=== PATIENT | female | born 1990 | race Caucasian/White ===

== ENCOUNTER → 2016-08-24 | Outpatient (REF) | payer OTHER ==
[~2016-08-24] MED LIST: /VITACHEW PO; ACET50TA PO; CEPH500T PO; DOCU10ELUD PO; FLINCHW PO; IBUP80TA PO; MOM30SS PO
[2016-08-24 18:29] LABS: THYROXINE (T4) 10.3 UG/DL (4.5-12.0)
== END ==
LOC: M SFHCCLAY 09:45
PROVIDERS: ATTEND Family Medicine
DX: E03.9 Hypothyroidism, unspecified (principal)

== ENCOUNTER → 2016-10-13 | Outpatient (REF) | payer OTHER | LOC: M SFHCCLAY 13:20 | PROVIDERS: ATTEND Family Medicine | DX: D23.72 Other benign neoplasm of skin of left lower limb, including hip (principal) ==

== ENCOUNTER 2017-07-18 20:22 | Emergency (ER) | payer MEDICAID, OTHER, SELFPAY ==
[2017-07-18 21:24] LABS: APPEARANCE, URINE CLEAR (CLEAR); BACTERIA, URINE AUTO 1+ (NEGATIVE); BILIRUBIN, URINE AUTO NEGATIVE (NEGATIVE); BLOOD, URINE BLOOD NEGATIVE (NEGATIVE); COLOR, URINE STRAW (YELLOW); GLUCOSE, URINE (UA) AUTO NEGATIVE (NEGATIVE); KETONE, URINE AUTO NEGATIVE (NEGATIVE); LEUKOCYTE ESTERASE, URINE AUTO NEGATIVE (NEGATIVE); NITRITE, URINE AUTO NEGATIVE (NEGATIVE); PROTEIN, URINE AUTO NEGATIVE (NEGATIVE); RBC, URINE AUTO 1 /HPF (0-3); SPECIFIC GRAVITY URINE AUTO 1.006 (1.002-1.035); SQUAMOUS EPITHELIAL CELL UR AU 2 /HPF (0-6); UROBILINOGEN, URINE AUTO 0.2 mg/dL (0.0-2.0); WBC, URINE AUTO 0 /HPF (0-3)
[2017-07-18 22:23] LABS: HCG, SERUM QUANTITATIVE 758 MIU/ML
[2017-07-18] MEDS: NITROFURANTOIN (MACROBID) 100 MG CAP PO (23:14)
== END 2017-07-18 23:18 | disposition home or self-care (01) ==
LOC: M ED 20:22
DX: O20.0 Threatened abortion (principal); O23.30 Infections of other parts of urinary tract in pregnancy, unspecified trimester; O34.10 Maternal care for benign tumor of corpus uteri, unspecified trimester; O34.80 Maternal care for other abnormalities of pelvic organs, unspecified trimester; Z79.899 Other long term (current) drug therapy
CPT/HCPCS: 76801

== ENCOUNTER → 2017-07-20 | Outpatient (CLI) | payer MEDICAID, SELFPAY ==
[2017-07-20 20:18] LABS: HCG, SERUM QUANTITATIVE 1429 MIU/ML
== END ==
LOC: M LAB 19:07
DX: O20.0 Threatened abortion (principal)
CPT/HCPCS: 84702

== ENCOUNTER → 2017-12-23 | Outpatient (CLI) | payer OTHER ==
[2017-12-23 13:19] LABS: HEMATOCRIT 36.3 % (36.0-47.0); HEMOGLOBIN 11.8 g/dl (12.0-15.5); MEAN CORPUSCULAR HEMOGLOBIN 30.3 pg (27.0-33.0); MEAN CORPUSCULAR HGB CONC 32.5 g/dl (32.0-36.5); MEAN CORPUSCULAR VOLUME 93.3 fl (80.0-96.0); PLATELET COUNT, AUTOMATED 230 10^3/uL (150-450); RED BLOOD COUNT 3.89 10^6/uL (4.00-5.40); RED CELL DISTRIBUTION WIDTH 13.3 % (11.5-14.5); WHITE BLOOD COUNT 11.7 10^3/uL (4.0-10.0)
[2017-12-23 13:28] LABS: GLUCOSE CHALLENGE TEST 1 HOUR 82 MG/DL (LESS THAN 140)
== END ==
LOC: M LAB 11:57
DX: Z34.82 Encounter for supervision of other normal pregnancy, second trimester (principal); Z3A.00 Weeks of gestation of pregnancy not specified
CPT/HCPCS: 82950

== ENCOUNTER 2018-01-20 17:53 | Emergency (ER) | payer OTHER | END 2018-01-20 19:28 | disposition home or self-care (01) | LOC: M ED 17:53 | DX: M79.662 Pain in left lower leg (principal); M79.89 Other specified soft tissue disorders | CPT/HCPCS: 93971 ==

== ENCOUNTER → 2018-02-24 | Outpatient (REF) | payer OTHER ==
[~2018-02-24] MED LIST changes: +COLA100C5 PO; +IBUP-1114 PO; +MACR100C43 PO; +MAPA500T2 PO; +PREN1CHW4 PO
== END ==
LOC: M LAB REF 13:05
PROVIDERS: ATTEND Obstetrics & Gynecology
DX: Z34.83 Encounter for supervision of other normal pregnancy, third trimester (principal)

== ENCOUNTER 2018-02-26 23:11 | Inpatient (IN) | payer OTHER ==
[~2018-02-26] VITALS: Ht 157.5 cm; Wt 81.6 kg
[~2018-02-26 23:11] MED LIST changes: -COLA100C5 PO; -IBUP-1114 PO; -MAPA500T2 PO
[2018-02-26 23:25] VITALS: BP 130/68
[2018-02-27] VITALS (56 sets, daily range): BP systolic 89–146; BP diastolic 46–72
[2018-02-27] MEDS ORDERED: miSOPROStol 50 MCG 1/2 TAB (S0191) PO SCH (00:30)
[2018-02-27] MEDS ORDERED: OXYTOCIN DRIP 30 UNITS in APPROPRIATE DILUENT 1 EA IV SCH ×2 (02:00→14:23)
[2018-02-27 02:36] LABS: HEMATOCRIT 34.2 % (36.0-47.0); HEMOGLOBIN 11.1 g/dl (12.0-15.5); MEAN CORPUSCULAR HEMOGLOBIN 28.1 pg (27.0-33.0); MEAN CORPUSCULAR HGB CONC 32.5 g/dl (32.0-36.5); MEAN CORPUSCULAR VOLUME 86.6 fl (80.0-96.0); PLATELET COUNT, AUTOMATED 245 10^3/uL (150-450); RED BLOOD COUNT 3.95 10^6/uL (4.00-5.40)
[2018-02-27] MEDS ORDERED: CALCIUM CARBONATE 500 MG CHEW U/D PO ONE (03:45)
[2018-02-27] MEDS: LR 1,000 ML IV SCH ×2 (04:16→07:22)
--- NOTE | 2018-02-27 05:42 | NUR ---
L&D Note: -Patient requesting epidural. Pitocin was stopped earlier for variable decelerations. currently cat 1 tracing. vss, AF cx: 1/50%, unchanged. A/P: 27yo at 36 wks with PROM. Reassuring status -epidural at patient request -will resume labor augmentation Bev Adams MD
[2018-02-27] MEDS ORDERED: FENTANYL 2MCG/ML ROPIVACAINE 0.2% IN 0.9% NACL 100ML IVBAG As Ordered ONE (05:46)
[2018-02-27] MEDS ORDERED: diphenhydrAMINE INJ 50MG/ML VIAL (J1200) IV PRN (06:00)
[2018-02-27] MEDS ORDERED: EPIDURAL/PCA KEYS XX PRN (06:00)
[2018-02-27] MEDS ORDERED: FENTANYL/ROPIVACAINE/NACL BAG 100 ML EPIDURAL SCH (06:00)
[2018-02-27] MEDS ORDERED: REFRIGERATOR IV KEYS XX PRN (06:00)
[2018-02-27] MEDS ORDERED: NALOXONE INJ 0.4 MG/1 ML VIAL (J2310) IV PRN (06:00)
[2018-02-27] MEDS ORDERED: EPIDURAL COMMENT XX SCH (06:00)
[2018-02-27] MEDS ORDERED: ONDANSETRON 4MG/2ML VIAL (J2405) IV PRN (06:00)
[2018-02-27] MEDS: ePHEDrine SULFATE 25 MG/5 ML(5MG/ML) SYRINGE IV PRN ×4 (08:05→11:04)
--- NOTE | 2018-02-27 08:33 | HPE ---
DATE OF ADMISSION: 02/27/2018 REASON FOR ADMISSION: premature rupture of membranes. HISTORY OF PRESENT ILLNESS: Mrs. Lares is a 27-year-old 6, para 3 at 36 weeks 4 days estimated gestational age who presents with a gush of clear leakage of fluid overnight. She reports irregular contractions. Denies any vaginal bleeding. Also reports active movement. COURSE: Unremarkable. She initiated care in her first trimester at [facility]. PAST MEDICAL HISTORY: None. PAST SURGICAL HISTORY: 1. Tonsillectomy. 2. Dilatation and curettage. PAST OB HISTORY: She is 6, para 3. She has had three term uncomplicated deliveries. She has also had a 22 week still and two miscarriages. MEDICATIONS: vitamins. ALLERGIES: No known drug allergies. SOCIAL HISTORY: She denies any alcohol, tobacco or drug use during her . PHYSICAL EXAMINATION: Her vital signs are stable. She is afebrile. She has a category one heart tracing with some irregular contractions. General appearance: Well appearing, no acute distress. Lungs are clear to auscultation bilaterally. Cardiovascular: Heart regular rate and rhythm. Abdomen is gravid, nontender. Estimated weight 3100 grams. Cervical exam: She is 1 cm dilated, 25% effaced. Grossly ruptured. Nitrazine positive. Transabdominal ultrasound shows fetus in the cephalic presentation with oligohydramnios consistent with rupture of membranes. LABS: Her blood type is O positive. Antibody screen is negative. Rubella is immune. RPR is nonreactive. Hepatitis surface antigen is nonreactive. Chlamydia and gonorrhea screens are negative. She had a normal 1 hour Glucola and she is GBS negative. ASSESSMENT: 1. This patient is a 27-year-old 6, para 3 at 36 weeks 4 days estimated gestational age with premature rupture of membranes. 2. Reassuring status. PLAN: 1. Admit to labor and delivery. CBC, RPR, type and screen. 2. Patient has been thoroughly counseled in regards to her diagnosis. I have discussed augmentation of her labor with Pitocin. I have also reviewed other medications and procedures performed in labor and delivery. She has also been verbally consented for emergency surgery, blood products, anesthesia and desires to proceed with admission. 3. Will start Pitocin for augmentation.
[2018-02-27] MEDS: LACTATED RINGER'S 1000 ML IV PRN ×2 (09:19→11:04)
[2018-02-27] MEDS ORDERED: CALCIUM CARBONATE 500 MG CHEW U/D PO PRN (12:15)
[2018-02-27] MEDS ORDERED: RHOGAM 300 MCG (1500 IU) INJ (J2790) IM SCH (14:30)
[2018-02-27] MEDS ORDERED: MEASLES,MUMPS,RUBELLA VACCINE INJ (MMR-II) (90707) SC SCH (14:30)
[2018-02-27] MEDS ORDERED: miSOPROStol 200 MCG TAB (S0191) PR ONE (14:30)
[2018-02-27] MEDS ORDERED: ANUSOL HC CREAM 30GM TOP PRN (14:30)
[2018-02-27] MEDS ORDERED: DOCUSATE SODIUM 100 MG CAP PO PRN (14:30)
[2018-02-27] MEDS ORDERED: METHYLERGONOVINE MALEATE 0.2 MG TAB PO PRN (14:30)
[2018-02-27] MEDS ORDERED: MOM 30ML SUSPENSION UDC PO PRN (14:30)
[2018-02-27] MEDS ORDERED: DIBUCAINE 1% OINTMENT 30GM TOP PRN (14:30)
[2018-02-27] MEDS: IBUPROFEN 800 MG TAB PO PRN ×2 (15:14→23:29)
[2018-02-27] MEDS: ACETAMINOPHEN 500 MG TAB PO PRN (17:38)
[2018-02-28] MEDS: ACETAMINOPHEN 500 MG TAB PO PRN (05:32)
[2018-02-28 05:50] VITALS: BP 94/53
--- NOTE | 2018-02-28 06:38 | DN ---
DATE OF DELIVERY: 02/27/2018 TIME OF : 1320 hours. GENDER: Male. SCORES: 7 and 8. WEIGHT: 6 pounds, 11 ounces or 3440 grams. LACERATIONS: None. ESTIMATED BLOOD LOSS: 300 mL. ANESTHESIA: Epidural. COUNTS: 5 laparotomy sponges accounted prior to and after delivery. DELIVERY NOTE: On February 27, 2018 at 1320 hours, Mrs. Lares, a 27-year-old 6 now para 4 had a delivery of a liveborn male infant, scores 7 and 8, weight was 6 pounds 11 ounces or 3440 grams. Head was delivered OA over intact perineum followed by delivery of shoulders and corpus. The infant was handed to mom with a good cry. Cord was clamped times two and was cut by the father of the baby under my direction. The placenta was then drained and delivered grossly intact. A premixed bag of 500 mL of normal saline with 30 units of Pitocin was bolused along with uterine massage until the uterus was firm. On inspection the cervix, vagina and perineum was grossly intact and hemostatic. Mom and baby were recovering in stable condition.
[2018-02-28] MEDS ORDERED: IBUP-1114 PO (08:57)
[2018-02-28] MEDS ORDERED: COLA100C5 PO (08:57)
[2018-02-28] MEDS ORDERED: MOM30SS PO (08:57)
[2018-02-28] MEDS ORDERED: MAPA500T2 PO (08:57)
[2018-02-28] MEDS ORDERED: PRENATAL VITAMINS CHEWABLE TABLET PO SCH (09:00)
[2018-02-28] MEDS: IBUPROFEN 800 MG TAB PO PRN (09:54)
[2018-02-28 11:50] VITALS: BP 144/65
== END 2018-02-28 10:14 | disposition home or self-care (01) | DRG 560 ==
LOC: M LDO 23:11 → M LDI 02-27 00:21 → M OBS 02-27 15:00
PROVIDERS: ADMIT Obstetrics & Gynecology; ATTEND Obstetrics & Gynecology
PROC: 10E0XZZ Delivery of Products of Conception, External Approach (ICD-10-PCS; principal; 2018-02-27)
DX: O42.013 Preterm premature rupture of membranes, onset of labor within 24 hours of rupture, third trimester (principal); Z37.0 Single live birth; Z3A.36 36 weeks gestation of pregnancy

== ENCOUNTER → 2019-08-14 | Outpatient (CLI) | payer OTHER ==
[~2019-08-14] MED LIST changes: -/VITACHEW PO; -ACET50TA PO; +COLA100C5 PO; -DOCU10ELUD PO; +DOCU5LIQ PO; +FLIN1CHW3 PO; +IBUP-1114 PO; +MAPA500T17 PO; +MAPA500T2 PO
--- NOTE | 2019-08-14 12:19 | REP ---
Clinical: Acute right knee pain Technique: AP, lateral, bilateral oblique and sunrise views. Findings: The osseous structures and joint spaces are intact and normal. There is no evidence for acute fracture or dislocation. No joint effusion is appreciated. Surrounding soft tissues are unremarkable. No subcutaneous emphysema or radiodense foreign body. Impression: Normal examination. No acute fracture or dislocation. Electronically Signed by Christian Bryant MD 08/14/2019 12:11 P
== END ==
LOC: M CLY 11:51
PROVIDERS: ATTEND Family Medicine
DX: M25.461 Effusion, right knee (principal); M25.561 Pain in right knee

== ENCOUNTER → 2019-09-06 | Outpatient (CLI) | payer OTHER ==
--- NOTE | 2019-09-07 08:52 | REP ---
MRI RIGHT KNEE WITHOUT CONTRAST: HISTORY: Right knee effusion. Right knee pain laterally. Comparison knee radiographs are from August 14, 2019. TECHNIQUE: Axial, coronal and sagittal imaging planes are utilized. T1- and T2-weighted scans were obtained in the usual fashion with and without fat saturation. MRI FINDINGS: Cortical and medullary bone signal intensity are normal. There is no evidence of occult fracture. There is a small amount of joint fluid. No discernible Thomason's cyst. There is fluid however surrounding the myofascial interface of the distal semimembranosus muscle belly. In addition there is some fluid at the myofascial interface of the gastrocnemius muscle in the proximal calf. This may relate to soft tissue injury. No tendon disruption is appreciated. The anterior and posterior cruciate ligaments are intact. Patellar and quadriceps tendons are unremarkable. There is no evidence of medial collateral or lateral collateral ligament disruption. There is no evidence of medial or lateral meniscal tear. No articular cartilage lesion or disruption is appreciated. Medial and lateral patellar retinacular structures appear intact. IMPRESSION: Edema along the myofascial planes in the posteromedial soft tissues surrounding the gastrocnemius muscle in the proximal calf and the distal semimembranosus muscle in the distal thigh. Question recent soft tissue injury. No hematoma or tendon disruption is appreciated. No internal derangement seen. Minimal joint effusion. Electronically Signed by Venkata Dowling MD 09/07/2019 09:04 A
== END ==
LOC: M RAD 16:41
PROVIDERS: ATTEND Family Medicine
DX: M25.461 Effusion, right knee (principal); M25.561 Pain in right knee

== ENCOUNTER → 2020-06-28 | Outpatient (REF) | payer OTHER ==
[2020-06-28 16:07] LABS: BASO # 0.1 10^3/uL (0.0-0.2); BASO % 1.6 % (0.0-1.0); EOS # 0.4 10^3/uL (0.0-0.5); EOS % 6.3 % (0.0-3.0); HEMOGLOBIN 13.9 g/dl (12.0-15.5); LYMPH # 2.4 10^3/uL (1.5-5.0); LYMPH % 41.1 % (24.0-44.0); MEAN CORPUSCULAR HEMOGLOBIN 29.6 pg (27.0-33.0); MEAN CORPUSCULAR HGB CONC 31.6 g/dl (32.0-36.5); MEAN CORPUSCULAR VOLUME 93.8 fl (80.0-96.0); MONO # 0.5 10^3/uL (0.0-0.8); MONO % 8.5 % (2.0-8.0); NEUTROPHILS # 2.4 10^3/uL (1.5-8.5); NEUTROPHILS % 42.3 % (36.0-66.0); PLATELET COUNT, AUTOMATED 331 10^3/uL (150-450); RED BLOOD COUNT 4.69 10^6/uL (4.00-5.40); WHITE BLOOD COUNT 5.8 10^3/uL (4.0-10.0)
[2020-06-28 16:35] LABS: ALBUMIN 3.8 GM/DL (3.2-5.2); ALT/SGPT 24 U/L (12-78); BILIRUBIN,TOTAL 0.4 MG/DL (0.2-1.0); BLOOD UREA NITROGEN 7 MG/DL (7-18); CALCIUM LEVEL 9.4 MG/DL (8.5-10.1); CARBON DIOXIDE LEVEL 29 MEQ/L (21-32); CHLORIDE LEVEL 108 MEQ/L (98-107); CREATININE FOR GFR 0.67 MG/DL (0.55-1.30); GLOMERULAR FILTRATION RATE > 60.0 (>60); GLUCOSE, FASTING 61 MG/DL (70-100); POTASSIUM SERUM 4.2 MEQ/L (3.5-5.1); RHEUMATOID FACTOR QUANT < 10.0 IU/ML (<15.0); SODIUM LEVEL 140 MEQ/L (136-145)
[2020-06-28 18:31] LABS: ERYTHROCYTE SEDIMENTATION RATE 4 mm/hr (0-20)
[2020-07-01 23:11] LABS: ANA (HEP2) Negative (.); CYCLIC CITRULLINATED PEPTIDE 2 units (0-19); Lyme Disease IgG/IgM Antibodie <0.91 ISR (0.00-0.90); Lyme Disease IgM Ab Quantitati <0.80 index (0.00-0.79)
== END ==
LOC: M SFHCCLAY 11:03
PROVIDERS: ATTEND Family Medicine
DX: M25.561 Pain in right knee (principal); M25.562 Pain in left knee

== ENCOUNTER → 2021-04-14 | Outpatient (CLI) | payer OTHER | LOC: M CLY 10:48 | PROVIDERS: ATTEND Physician Assistant | DX: S69.91XA Unspecified injury of right wrist, hand and finger(s), initial encounter (principal); X58.XXXA Exposure to other specified factors, initial encounter; Y92.9 Unspecified place or not applicable; Y93.9 Activity, unspecified; Y99.9 Unspecified external cause status ==

== ENCOUNTER → 2022-05-11 | Outpatient (REF) | payer OTHER ==
[2022-05-11 17:43] LABS: IRON (FE) 51 UG/DL (50-170)
[2022-05-11 17:48] LABS: BASO # 0.1 10^3/uL (0.0-0.2); BASO % 1.4 % (0.0-1.0); EOS # 0.6 10^3/uL (0.0-0.5); EOS % 9.1 % (0.0-3.0); HEMATOCRIT 41.9 % (36.0-47.0); HEMOGLOBIN 13.7 g/dl (12.0-15.5); LYMPH # 2.4 10^3/uL (1.5-5.0); MEAN CORPUSCULAR HEMOGLOBIN 30.3 pg (27.0-33.0); MEAN CORPUSCULAR HGB CONC 32.7 g/dl (32.0-36.5); MEAN CORPUSCULAR VOLUME 92.7 fl (80.0-96.0); MONO # 0.6 10^3/uL (0.0-0.8); MONO % 8.7 % (2.0-8.0); NEUTROPHILS # 3.3 10^3/uL (1.5-8.5); NEUTROPHILS % 46.5 % (36.0-66.0); PLATELET COUNT, AUTOMATED 272 10^3/uL (150-450); RED BLOOD COUNT 4.52 10^6/uL (4.00-5.40); WHITE BLOOD COUNT 7.1 10^3/uL (4.0-10.0)
[2022-05-11 17:49] LABS: ALKALINE PHOSPHATASE 67 U/L (46-116); ALT/SGPT 36 U/L (7.0-40); AST/SGOT 31 U/L (<34); BILIRUBIN,TOTAL 0.4 MG/DL (0.3-1.2); BLOOD UREA NITROGEN 12 MG/DL (9-23); CALCIUM LEVEL 9.1 MG/DL (8.5-10.1); CARBON DIOXIDE LEVEL 27 MMOL/L (20-31); CHLORIDE LEVEL 106 MMOL/L (98-107); CREATININE FOR GFR 0.64 MG/DL (0.55-1.30); FREE T4 1.02 NG/DL (0.89-1.76); GLOMERULAR FILTRATION RATE > 60.0 (>60); GLUCOSE, FASTING 84 MG/DL (60-100); POTASSIUM SERUM 4.4 MMOL/L (3.5-5.1); SODIUM LEVEL 139 MMOL/L (136-145); TOTAL PROTEIN 6.6 G/DL (5.7-8.2)
== END ==
LOC: M SFHCCLAY 11:46
PROVIDERS: ATTEND Family Medicine
DX: R53.82 Chronic fatigue, unspecified (principal); D64.9 Anemia, unspecified; Z68.30 Body mass index [BMI] 30.0-30.9, adult

== ENCOUNTER → 2023-01-25 | Outpatient (REF) | payer OTHER ==
[2023-01-25 18:29] LABS: HEMATOCRIT 44.3 % (36.0-47.0); HEMOGLOBIN 14.5 g/dl (12.0-15.5); MEAN CORPUSCULAR HEMOGLOBIN 30.1 pg (27.0-33.0); MEAN CORPUSCULAR HGB CONC 32.7 g/dl (32.0-36.5); MEAN CORPUSCULAR VOLUME 92.1 fl (80.0-96.0); PLATELET COUNT, AUTOMATED 282 10^3/uL (150-450); RED BLOOD COUNT 4.81 10^6/uL (4.00-5.40); WHITE BLOOD COUNT 5.5 10^3/uL (4.0-10.0)
[2023-01-25 18:52] LABS: ALBUMIN 4.1 G/DL (3.2-5.2); ALKALINE PHOSPHATASE 63 U/L (46-116); ALT/SGPT 11 U/L (7.0-40); AST/SGOT 14 U/L (<34); BILIRUBIN,TOTAL 0.5 MG/DL (0.3-1.2); BLOOD UREA NITROGEN 9 MG/DL (9-23); CARBON DIOXIDE LEVEL 26 MMOL/L (20-31); CHLORIDE LEVEL 107 MMOL/L (98-107); CREATININE FOR GFR 0.72 MG/DL (0.55-1.30); GLOMERULAR FILTRATION RATE > 60.0 (>60); GLUCOSE, FASTING 98 MG/DL (60-100); IRON (FE) 73 UG/DL (50-170); POTASSIUM SERUM 4.2 MMOL/L (3.5-5.1); SODIUM LEVEL 138 MMOL/L (136-145); TOTAL PROTEIN 6.9 G/DL (5.7-8.2)
== END ==
LOC: M SFHCCLAY 10:23
PROVIDERS: ATTEND Family Medicine
DX: D64.9 Anemia, unspecified (principal)

== ENCOUNTER → 2023-06-09 | Outpatient (REF) | payer OTHER ==
[2023-06-09 17:57] LABS: HEMATOCRIT 43.6 % (36.0-47.0); HEMOGLOBIN 14.3 g/dl (12.0-15.5); MEAN CORPUSCULAR HEMOGLOBIN 30.2 pg (27.0-33.0); MEAN CORPUSCULAR HGB CONC 32.8 g/dl (32.0-36.5); MEAN CORPUSCULAR VOLUME 92.2 fl (80.0-96.0); PLATELET COUNT, AUTOMATED 285 10^3/uL (150-450); RED BLOOD COUNT 4.73 10^6/uL (4.00-5.40); WHITE BLOOD COUNT 6.7 10^3/uL (4.0-10.0)
[2023-06-09 18:29] LABS: ALBUMIN 4.1 G/DL (3.2-5.2); ALKALINE PHOSPHATASE 77 U/L (46-116); ALT/SGPT 19 U/L (7.0-40); AST/SGOT 17 U/L (<34); BILIRUBIN,TOTAL 0.2 MG/DL (0.3-1.2); BLOOD UREA NITROGEN 11 MG/DL (9-23); CALCIUM LEVEL 9.1 MG/DL (8.5-10.1); CARBON DIOXIDE LEVEL 27 MMOL/L (20-31); CHLORIDE LEVEL 104 MMOL/L (98-107); CREATININE FOR GFR 0.71 MG/DL (0.55-1.30); GLOMERULAR FILTRATION RATE > 60.0 (>60); GLUCOSE, FASTING 81 MG/DL (60-100); IRON (FE) 41 UG/DL (50-170); POTASSIUM SERUM 4.3 MMOL/L (3.5-5.1); SODIUM LEVEL 137 MMOL/L (136-145); THYROID STIMULATING HORMONE 0.675 uIU/ML (0.55-4.78); TOTAL PROTEIN 6.8 G/DL (5.7-8.2)
== END ==
LOC: M SFHCCLAY 15:09
PROVIDERS: ATTEND Family Medicine
DX: R53.82 Chronic fatigue, unspecified (principal); G47.419 Narcolepsy without cataplexy; D64.9 Anemia, unspecified

== ENCOUNTER → 2023-10-12 | Outpatient (REF) | payer BC ==
[~2023-10-12] MED LIST changes: +ARMO150T PO; +IBUP-354 PO; +MELA5TAB47 PO; +SUMA100T2 PO
== END ==
LOC: M SFHCCLAY 12:33
PROVIDERS: ATTEND Family Medicine
DX: B07.9 Viral wart, unspecified (principal)

== ENCOUNTER 2023-10-13 13:44 | Day surgery (SDC) | payer BC ==
[~2023-10-13] VITALS: Ht 157.5 cm; Wt 73.6 kg
[~2023-10-13 13:44] MED LIST changes: +LR 1,000 ML IV SCH; -MELA5TAB47 PO
[2023-10-13] MEDS ORDERED: LR 1,000 ML IV SCH ×3 (14:00→17:20)
[2023-10-13] MEDS ORDERED: MELA5TAB47 PO (14:13)
[2023-10-13 14:36] LABS: HEMATOCRIT 41.4 % (36.0-47.0); HEMOGLOBIN 13.9 g/dl (12.0-15.5); MEAN CORPUSCULAR HEMOGLOBIN 30.8 pg (27.0-33.0); MEAN CORPUSCULAR HGB CONC 33.6 g/dl (32.0-36.5); MEAN CORPUSCULAR VOLUME 91.6 fl (80.0-96.0); PLATELET COUNT, AUTOMATED 260 10^3/uL (150-450); RED BLOOD COUNT 4.52 10^6/uL (4.00-5.40); WHITE BLOOD COUNT 6.5 10^3/uL (4.0-10.0)
[2023-10-13] MEDS: METHYLENE BLUE 0.5% (5MG/ML) 10 ML AMP (PROVAYBLUE) As Ordered ONE (15:16)
[2023-10-13] MEDS ORDERED: propofoL 200 MG/20 ML VIAL As Ordered ONE (15:54)
[2023-10-13] MEDS ORDERED: ROCURONIUM BROMIDE 50MG/5ML VIAL As Ordered ONE (15:55)
[2023-10-13] MEDS ORDERED: LIDOCAINE 2% 100MG/5ML SDV (FOR ANES.) As Ordered ONE (15:55)
[2023-10-13] MEDS ORDERED: MIDAZOLAM INJ 2MG/2ML VIAL As Ordered ONE (15:56)
[2023-10-13] MEDS ORDERED: fentaNYL 100 MCG/2 ML INJECTION As Ordered ONE (15:57)
[2023-10-13] MEDS ORDERED: KETOROLAC 60MG 2ML VIAL As Ordered ONE (16:04)
[2023-10-13] MEDS ORDERED: SUGAMMADEX SODIUM 500 MG/5 ML VIAL (BRIDION) As Ordered ONE (16:04)
[2023-10-13] MEDS ORDERED: ONDANSETRON 4MG 2ML VIAL As Ordered ONE (16:04)
[2023-10-13] MEDS ORDERED: ACETAMINOPHEN 1000MG 100ML IV BAG As Ordered ONE (16:13)
[2023-10-13] MEDS ORDERED: HYDROMORPHONE HCL 0.5 MG/ 0.5 ML SYRINGE IV PRN (16:50)
[2023-10-13] MEDS ORDERED: fentaNYL 100 MCG/2 ML INJECTION IV PRN (16:50)
[2023-10-13] MEDS: oxyCODONE 5MG TAB PO PRN (17:03)
[2023-10-13] MEDS: ONDANSETRON 4MG 2ML VIAL IV PRN (17:04)
[2023-10-13] MEDS ORDERED: PERCOCET 5MG/325MG TAB PO PRN (17:20)
[2023-10-13 17:25] VITALS: BP 114/75; TEMP 97.8; O2SAT 97
[2023-10-13] MEDS ORDERED: IBUPROFEN 800 MG TAB PO SCH (22:00)
== END 2023-10-13 17:48 | disposition home or self-care (01) ==
LOC: M SDC 13:44
PROVIDERS: ATTEND Obstetrics & Gynecology
DX: Z30.2 Encounter for sterilization (principal); F17.210 Nicotine dependence, cigarettes, uncomplicated; G43.909 Migraine, unspecified, not intractable, without status migrainosus; Z79.899 Other long term (current) drug therapy; Z90.89 Acquired absence of other organs; G47.419 Narcolepsy without cataplexy; Z80.41 Family history of malignant neoplasm of ovary; Z80.3 Family history of malignant neoplasm of breast

== ENCOUNTER → 2023-11-11 | Outpatient (CLI) | payer BC ==
[~2023-11-11] MED LIST changes: -LR 1,000 ML IV SCH; +MELA5TAB47 PO
== END ==
LOC: M SOG 07:21
PROVIDERS: ATTEND Physician Assistant
DX: M25.571 Pain in right ankle and joints of right foot (principal); Z53.9 Procedure and treatment not carried out, unspecified reason

== ENCOUNTER → 2024-04-27 | Outpatient (REF) | payer BC ==
[2024-04-27 18:52] LABS: HEMATOCRIT 41.4 % (36.0-47.0); HEMOGLOBIN 13.7 g/dl (12.0-15.5); MEAN CORPUSCULAR HEMOGLOBIN 30.6 pg (27.0-33.0); MEAN CORPUSCULAR HGB CONC 33.1 g/dl (32.0-36.5); MEAN CORPUSCULAR VOLUME 92.6 fl (80.0-96.0); PLATELET COUNT, AUTOMATED 319 10^3/uL (150-450); RED BLOOD COUNT 4.47 10^6/uL (4.00-5.40); WHITE BLOOD COUNT 8.9 10^3/uL (4.0-10.0)
[2024-04-27 19:15] LABS: ALKALINE PHOSPHATASE 86 U/L (35-104); ALT/SGPT 25 U/L (7.0-40); AST/SGOT 23 U/L (<34); BILIRUBIN,TOTAL 0.3 MG/DL (0.3-1.2); BLOOD UREA NITROGEN 13 MG/DL (9-23); CALCIUM LEVEL 9.2 MG/DL (8.5-10.1); CARBON DIOXIDE LEVEL 27 MMOL/L (20-31); CHLORIDE LEVEL 107 MMOL/L (98-107); CHOLESTEROL LEVEL 189 MG/DL (<200); CHOLESTEROL RISK RATIO 3.68 (<5); GLOMERULAR FILTRATION RATE > 60.0 (>60); GLUCOSE, FASTING 75 MG/DL (60-100); HDL CHOLESTEROL 51.3 MG/DL (>40); IRON (FE) 61 UG/DL (50-170); LDL CHOLESTEROL 120.9 MG/DL (<100); NON-HDL-C 137.7 MG/DL; POTASSIUM SERUM 4.6 MMOL/L (3.5-5.1); SODIUM LEVEL 141 MMOL/L (136-145); TRIGLYCERIDES LEVEL 84 MG/DL (<150)
== END ==
LOC: M SFHCCLAY 14:16
PROVIDERS: ATTEND Family Medicine
DX: D64.9 Anemia, unspecified (principal); Z13.220 Encounter for screening for lipoid disorders

== ENCOUNTER → 2024-08-21 | Outpatient (REF) | payer BC ==
[2024-08-21 18:43] LABS: PLATELET COUNT, AUTOMATED 308 10^3/uL (150-450)
[2024-08-21 19:15] LABS: ALT/SGPT 17 U/L (7.0-40); AST/SGOT 21 U/L (<34); CALCIUM LEVEL 8.8 MG/DL (8.5-10.1); CARBON DIOXIDE LEVEL 27 MMOL/L (20-31); CHLORIDE LEVEL 106 MMOL/L (98-107); CREATININE FOR GFR 0.69 MG/DL (0.55-1.30); GLOMERULAR FILTRATION RATE > 90.0 (>60); IRON (FE) 85 UG/DL (50-170); POTASSIUM SERUM 3.9 MMOL/L (3.5-5.1); SODIUM LEVEL 140 MMOL/L (136-145)
[2024-08-21 19:16] LABS: FREE T4 1.21 NG/DL (0.89-1.76)
[2024-08-21 19:17] LABS: LUTEINIZING HORMONE 8.6 mIU/ML; TOTAL T3 109.9 NG/DL (60.0-181.0)
[2024-08-26 17:38] LABS: ESTROGENS TOTAL 208.0 pg/mL
[2024-08-27 18:07] LABS: TESTOSTERONE FREE (DIRECT) 3.6 pg/mL (0.1-6.4); TESTOSTERONE TOTAL FOR T&D 53.0 ng/dL (2-45)
== END ==
LOC: M SFHCCLAY 14:59
PROVIDERS: ATTEND Family Medicine
DX: R53.82 Chronic fatigue, unspecified (principal); G47.00 Insomnia, unspecified; D64.9 Anemia, unspecified